=== PATIENT | male | born 1995 | race African-American/Black ===

== ENCOUNTER 2024-07-07 10:54 | Emergency (ER) | payer OTHER ==
[2024-07-07 11:44] VITALS: BP 124/91; PULSE 86; RESP 18; TEMP 98.6; BMI 27.5
[2024-07-07 14:36] LABS: HIV INTERPRETATION NEGATIVE (NEGATIVE)
== END 2024-07-07 12:25 | disposition home or self-care (01) ==
LOC: FER 10:54
DX: J02.8 Acute pharyngitis due to other specified organisms (principal); R05.9 Cough, unspecified
CPT/HCPCS: 36415; 86803; 87389; 87651; 99283-25